=== PATIENT | female | born 1970 | race Two or more races ===

== ENCOUNTER 2016-09-10 10:00 | Observation (INO) | payer SELFPAY ==
[~2016-09-10 10:00] MED LIST: BACTERICIN14.2 GM TP; NORCO 5/3251 TA1 PO; TRIMETHOPR100 MG/TAB PO
[2016-09-10] MEDS ORDERED: BCP (10:06)
[2016-09-10 10:56] LABS: URINE APPEARANCE CLEAR; URINE BILIRUBIN NEGATIVE (NEG); URINE BLOOD LARGE (NEG); URINE COLOR PALE YELLOW; URINE GLUCOSE (UA) NEGATIVE (NEG); URINE KETONE NEGATIVE (NEG); URINE LEUKOCYTE ESTERASE NEGATIVE (NEG); URINE NITRITE NEGATIVE (NEG); URINE PROTEIN NEGATIVE (NEG)
[2016-09-10 11:03] LABS: URINE EPITHELIAL CELLS 0-2 /[HPF] (0-10); URINE WBC 0 /[HPF] (0-5)
[2016-09-10 11:15] LABS: BASO % 0.2 % (0-2); EOS % 0.2 % (0-7); HCT-HEMATOCRIT 38.3 % (34.0-49.0); HGB-HEMOGLOBIN 13.2 gm/dl (12.0-15.5); IMMATURE GRANULOCYTES ABSOLUTE 0.07 tho/cmm (0-0.03); IMMATURE GRANULOCYTES PERCENT 0.4 % (0-0.3); MCHC MEAN CORPUSCULAR HGB CONC 34.5 % (32.0-36.0); MEAN PLATELET VOLUME 9.6 cmc (9.4-12.4); MONO % 7.2 % (0-12); MONOCYTE ABSOLUTE COUNT 1.4 tho/cmm (0.0-1.2); NEUTROPHIL ABSOLUTE COUNT 15.4 tho/cmm (1.6-8.0); NEUTROPHIL-AUTOMATED 15.4 tho/cmm (1.6-8.0); PLATELET COUNT 313 tho/cmm (150-450); RED BLOOD COUNT 4.12 mil/cmm (4.00-5.20); RED CELL DISTRIBUTION WIDTH 12.3 % (12.4-16.4)
[2016-09-10 11:31] LABS: ALB/GLOB RATIO 0.7 (0.8-2.0); ALBUMIN 3.1 g/dl (3.5-5.0); ALKALINE PHOSPHATASE 66 U/L (33-138); ALT/SGPT 29 U/L (12-78); ANION GAP 10 mmol/L (0-20); AST/SGOT 21 U/L (10-40); BILIRUBIN,TOTAL 0.5 mg/dl (0-1.5); BLOOD UREA NITROGEN 5 mg/dl (6-24); CALCIUM 8.1 mg/dl (8.5-10.5); CARBON DIOXIDE-VENOUS 26 mmol/L (22-32); CHLORIDE 109 mmol/l (96-110); CREATININE 0.68 mg/dl (0.50-1.10); GLUCOSE 94 mg/dL (70-110); LIPASE 171 U/L (73-393); POTASSIUM 3.8 mmol/L (3.7-5.1); SODIUM 141 mmol/L (135-145); eGFR VALUE FOR BLACK >90 mL/Min
--- NOTE | 2016-09-10 21:09 | NUR ---
VIRTUAL CARE NOTE: PT WANTING TO DC. [place] SPEAKING SO FLOOR RN WILL DO WITH FAMILY. PRINTED NORCO/COLACE MED HANDOUTS IN [place] AND [place]. PRINTED WOUND CARE LFL. PRINTED LAP APPY CARE AFTER FROM [facility] IN [place] AND [place]. [facility]USAN WILL PRINT MEDITEC FORMS AND REVIEW ALL WITH PT/FAMILY.
== END 2016-09-10 21:50 ==
LOC: EDMED 10:00 → EMR2 15:34 → PACU 16:37 → 5WD 17:20
PROVIDERS: Nurse Practitioner Family; ADMIT Surgery
PROC: 0DTJ4ZZ Resection of Appendix, Percutaneous Endoscopic Approach (ICD-10-PCS; principal; 2016-09-10)
DX: D12.1 Benign neoplasm of appendix (principal); K35.80 Unspecified acute appendicitis; Z98.890 Other specified postprocedural states
CPT/HCPCS: J1335; J2270; J2405; J7030; Q9967